=== PATIENT | male | born 2000 | race Caucasian/White ===

== ENCOUNTER 2023-04-14 11:19 | Emergency (ER) | payer MEDICAID ==
[~2023-04-14] VITALS: Ht 182.9 cm; Wt 84.5 kg
[2023-04-14 11:21] VITALS: BP 109/81
[2023-04-14] MEDS ORDERED: CEPH-585 PO (11:47)
[2023-04-14] MEDS ORDERED: ACET-890 PO (11:47)
[2023-04-14] MEDS ORDERED: LIDOcaine 1% W/epiNEPHrine 1:100,000 20ml vial IJ ONE (11:50)
[2023-04-14] MEDS ORDERED: ketorolac trometh inj. 60 MG/2 ML VIAL IM ONE (11:50)
[2023-04-14] MEDS ORDERED: TETanus/Pertussis (Acell)/Diphther VAC/PF (Tdap-Adult) 0.5ml syringe IMVAC ONE (11:50)
[2023-04-14] MEDS ORDERED: bacitracin 15gm ointment TP ONE (11:50)
== END 2023-04-14 12:53 | disposition home or self-care (01) ==
LOC: ER 11:19
DX: S01.01XA Laceration without foreign body of scalp, initial encounter (principal); S80.212A Abrasion, left knee, initial encounter; S80.211A Abrasion, right knee, initial encounter; F12.10 Cannabis abuse, uncomplicated; Z59.00 Homelessness unspecified; Z56.0 Unemployment, unspecified; Z79.899 Other long term (current) drug therapy; Y04.0XXA Assault by unarmed brawl or fight, initial encounter; Y93.89 Activity, other specified; Y92.89 Other specified places as the place of occurrence of the external cause; Y99.8 Other external cause status
CPT/HCPCS: 12001; 70450; 90471; 90715; 96372; 99285; J1885; A6449

== ENCOUNTER 2023-04-23 09:06 | Emergency (ER) | payer MEDICAID ==
[~2023-04-23] VITALS: Ht 182.9 cm; Wt 86.4 kg
[~2023-04-23 09:06] MED LIST: CEPH-585 PO
[2023-04-23 09:17] VITALS: BP 117/71
--- NOTE | 2023-04-23 10:18 | NUR ---
bettie removed by mary grace chavira
== END 2023-04-23 10:33 | disposition home or self-care (01) ==
LOC: ER 09:06
DX: S01.01XD Laceration without foreign body of scalp, subsequent encounter (principal); F12.90 Cannabis use, unspecified, uncomplicated; Z48.02 Encounter for removal of sutures; Z72.89 Other problems related to lifestyle; Z59.00 Homelessness unspecified; Z56.0 Unemployment, unspecified; Z79.2 Long term (current) use of antibiotics; Z79.899 Other long term (current) drug therapy; X58.XXXD Exposure to other specified factors, subsequent encounter
CPT/HCPCS: 99281